=== PATIENT | male | born 1945 | race Asian ===

== ENCOUNTER 2019-06-02 15:20 | Emergency (ER) | payer OTHER ==
[~2019-06-02] VITALS: Ht 182.9 cm; Wt 72.6 kg
[2019-06-02 15:36] VITALS: BP 140/77
[2019-06-02] MEDS ORDERED: INVOKANA100 MG PO (15:37)
[2019-06-02] MEDS ORDERED: METFORMIN HCL500 M1 ORAL (15:38)
[2019-06-02] MEDS ORDERED: SULFAMETHOXAZO480 ML ORAL (15:43)
--- NOTE | 2019-06-02 15:50 | NUR ---
ED Nurse Note: Pt ambulated to the ED with son; with the c/o of painful urination with dark red blood in urine started this morning at 0500. Pt stated his prostate was removed last year. Urine specimen collected sent to lab.
--- NOTE | 2019-06-02 15:58 | NUR ---
ED Nurse Note: Son at bedside.
[2019-06-02 16:21] LABS: APPEARANCE,URINE TURBID; BILIRUBIN, URINE NEGATIVE (NEGATIVE); GLUCOSE, URINE (UA) 4+ (NEGATIVE); KETONES,URINE NEGATIVE (NEGATIVE); LEUKOCYTE ESTERASE ,URINE NEGATIVE (NEGATIVE); NITRITE,URINE NEGATIVE (NEGATIVE); PH,URINE 6.5 (4.5-8.0); PROTEIN,URINE 4+ (NEGATIVE); UROBILINOGEN,URINE NORMAL MG/DL (0.0-1.0)
--- NOTE | 2019-06-02 16:23 | NUR ---
ED Nurse Note: Obtained blood specimen, sent to labs. Established IV site at LT forearm with 20G, intact and patent.
[2019-06-02 16:25] LABS: COLOR,URINE RED
[2019-06-02 16:30] VITALS: BP 132/63
[2019-06-02 16:31] LABS: EOSINOPHILS % (AUTO) 1.5 % (0.0-3.0); HEMATOCRIT 41.1 % (42.0-52.0); HEMOGLOBIN 15.6 G/DL (14.2-18.0); LYMPHOCYTES % (AUTO) 35.9 % (20.0-45.0); MEAN CORPUSCULAR VOLUME 90 FL (80-99); MONOCYTES % (AUTO) 6.1 % (1.0-10.0); NEUTROPHILS % (AUTO) 54.6 % (45.0-75.0); PLATELET COUNT 198 K/UL (150-450); RED BLOOD COUNT 4.55 M/UL (4.70-6.10); RED CELL DISTRIBUTION WIDTH 10.3 % (11.6-14.8); WHITE BLOOD COUNT 6.4 K/UL (4.8-10.8)
[2019-06-02 16:43] LABS: ANION GAP 8 mmol/L (5-15); BLOOD UREA NITROGEN 19 mg/dL (7-18); CALCIUM 8.2 MG/DL (8.5-10.1); CARBON DIOXIDE 28 MMOL/L (21-32); CHLORIDE 105 MMOL/L (98-107); CREATININE 0.9 MG/DL (0.55-1.30); POTASSIUM 3.6 MMOL/L (3.5-5.1); SODIUM 141 MMOL/L (136-145)
[2019-06-02 16:53] LABS: ALANINE AMINOTRANSFERASE 24 U/L (12-78); ALBUMIN 3.5 G/DL (3.4-5.0); ALBUMIN/GLOBULIN RATIO 0.9 (1.0-2.7); ALKALINE PHOSPHATASE 62 U/L (46-116); ASPARTATE AMINO TRANSFERASE 10 U/L (15-37); BILIRUBIN,TOTAL 0.2 MG/DL (0.2-1.0)
--- NOTE | 2019-06-02 17:00 | NUR ---
ED Nurse Note: Ultrasound at bedside.
[2019-06-02] MEDS ORDERED: Omnipaque-300 100ml vial INJ PRN (17:30)
--- NOTE | 2019-06-02 17:41 | Emergency Room Report ---
History of Present Illness General Chief Complaint: Male Urogenital Problems Source: Patient Present Illness HPI 73 YO male presents to the ED c/o Hematuria x 1 day. He reports 5/10 in severity lower abdominal/bladder fullness. He reports he has difficulty emptying his bladder completely. Pt . reports hx. of prostate surgery in October of last year with hx of occasional scant hematuria, but denies previous episodes of gross hematuria. Pt. denies fevers, chills, constipation, anuria or inability to urinate. Pt. denies rectal pain, bleeding or d/c. Pt. denies nausea or vomiting. He denies dysuria or frequency. Denies CP, Palpitations, LOC, AMS, dizziness, Changes in Vision, Sensation, paresthesias, or a sudden severe headache. He was seen by his PCP this am and rx'd Bactrim DS to take for UTI. Pt. reports he began this medication however his hematuria is not improving. Pt. denies penile d/c, testicular pain or swelling. Pt. denies low back pain. He denies night sweats or hx of cancer. reports pmhx of DM and arrhythmia. No other aggravating or relieving factors at this time. Denies penile/ abdominal trauma. Denies recent Childress/catheter use/placement. Allergies: Coded Allergies: PENICILLINS (Verified Allergy, Unknown, 06/02/19) Patient History Past Medical History: see triage record, DM, arrhyth Past Surgical History: other - prostate surgery unknown procedure. october of 2017 Reviewed Nursing Documentation: PMH: Agreed; PSxH: Agreed Nursing Documentation-PMH Past Medical History: No History, Except For Hx Diabetes: Yes Review of Systems All Other Systems: negative except mentioned in HPI Physical Exam Vital Signs Date Time Temp Pulse Resp B/P (MAP) Pulse Ox O2 Delivery O2 Flow Rate FiO2 06/02/19 15:28 98.6 59 18 140/77 (98) 95 Room Air Sp02 EP Interpretation: reviewed, normal General Appearance: no apparent distress, alert, GCS 15, non-toxic Head: normocephalic, atraumatic Eyes: bilateral eye normal inspection, bilateral eye PERRL ENT: hearing grossly normal, normal voice Neck: full range of motion Respiratory: lungs clear, normal breath sounds, speaking full sentences Cardiovascular #1: regular rate, rhythm, no edema Gastrointestinal: normal bowel sounds, soft, non-distended, no guarding, tenderness - mild low suprapubic midline ttp. NO peritoneal signs. no rebound. no macburny's, no CVA Genitourinary: normal inspection, no CVA tenderness, other - gross hematuria Musculoskeletal: normal range of motion, gait/station normal, non-tender Neurologic: alert, motor strength/tone normal, oriented x3, sensory intact, responsive, speech normal Psychiatric: judgement/insight normal Skin: no rash, normal color Lymphatic: no adenopathy Medical Decision Making PA Attestation Dr. Banuelos Is my supervising Physician whom patient management has been discussed with. Diagnostic Impression: Primary Impression: Gross hematuria Additional Impressions: Bladder mass Hx of prostatitis ER Course 73 YO male presents to the ED c/o Hematuria x 1 day. He reports 5/10 in severity lower abdominal/bladder fullness. He reports he has difficulty emptying his bladder completely. Pt . reports hx. of prostate surgery in October of last year with hx of occasional scant hematuria, but denies previous episodes of gross hematuria. Pt. denies fevers, chills, constipation, anuria or inability to urinate. Pt. denies rectal pain, bleeding or d/c. Pt. denies nausea or vomiting. He denies dysuria or frequency. Denies CP, Palpitations, LOC, AMS, dizziness, Changes in Vision, Sensation, paresthesias, or a sudden severe headache. He was seen by his PCP this am and rx'd Bactrim DS to take for UTI. Pt. reports he began this medication however his hematuria is not improving. Pt. denies penile d/c, testicular pain or swelling. Pt. denies low back pain. He denies night sweats or hx of cancer. reports pmhx of DM and arrhythmia. No other aggravating or relieving factors at this time. Denies penile/ abdominal trauma. Denies recent Childress/catheter use/placement. Ddx considered but are not limited to UTi , Pyelo, STI, Stone, Cystitis, bladder outlet obstruction, malignancy/mass, prostatitis, infection just to name a few. Vital signs: are WNL, pt. is afebrile H&PE are most consistent with gross hematuria ORDERS: - UA labs are attached - gross hematuria, and few bacteria, no increased inflammatory markers to represent significant infection. -CBC: WNL no evidence to suggest significant acute blood loss. hgb 15.6 -CMP: WNL, normal renal function. elevated glucose at 205 -Lipase : WNL -ABO type: A positive (+) US Renal: bladder mass per US tech. -CT Abdomen and Pelvis W/WO contrast: " Hyperdense material seen within the urinary bladder likely representing blood products. An infectious process versus mass is not excluded but felt to be less likely. Marked enlargement of the prostate gland." Per official radiology report- Please see report for specific details. ED INTERVENTIONS: None required at this time. -Pt. reports able to urinate and does not want a Childress catheter. Pt. also reports that during ED visit he was able to get an appoint tomorrow ( within 24 hours) with his urologist. Discussed with patient and his son that he is to continue taking his antibiotics as prescribed by his primary care provider. Also discussed with the patient and his son the importance of urgent urology follow-up. Per patient and his son the patient already has an appointment for tomorrow with the urologist. Discussed with the patient and his son the abnormal finding of a urinary mass on CT exam and the need for prompt urology evaluation to rule out cancerous etiology, infectious and/or for definitive treatment. Pt. is provided with a copy of the official [facility] CT report as well as CD copy of his CT imaging performed at today's. visit. Pt. is also given a copy of his labs. The patient as well as his son who is responsible alliance party both verbalized their understanding and agreement with this treatment plan. DISCHARGE: At this time pt. is stable for d/c to home. Will provide printed patient care instructions, and any necessary prescriptions. Care plan and follow up instructions have been discussed with the patient prior to discharge. Labs Test 06/02/19 15:46 06/02/19 16:20 Urine Color Red Urine Appearance Turbid Urine pH 6.5 (4.5-8.0) Urine Specific [place] 1.015 (1.005-1.035) Urine Protein 4+ (NEGATIVE) Urine Glucose (UA) 4+ (NEGATIVE) Urine Ketones Negative (NEGATIVE) Urine Blood 5+ (NEGATIVE) Urine Nitrite Negative (NEGATIVE) Urine Bilirubin Negative (NEGATIVE) Urine Urobilinogen Normal MG/DL (0.0-1.0) Urine Leukocyte Esterase Negative (NEGATIVE) Urine RBC Tntc /HPF (0 - 0) Urine WBC 0-2 /HPF (0 - 0) Urine Squamous Epithelial Cells None /LPF (NONE/OCC) Urine Bacteria Few /HPF (NONE) White Blood Count 6.4 K/UL (4.8-10.8) Red Blood Count 4.55 M/UL (4.70-6.10) Hemoglobin 15.6 G/DL (14.2-18.0) Hematocrit 41.1 % (42.0-52.0) Mean Corpuscular Volume 90 FL (80-99) Mean Corpuscular Hemoglobin 34.2 PG (27.0-31.0) Mean Corpuscular Hemoglobin Concent 37.9 G/DL (32.0-36.0) Red Cell Distribution Width 10.3 % (11.6-14.8) Platelet Count 198 K/UL (150-450) Mean Platelet Volume 6.2 FL (6.5-10.1) Neutrophils (%) (Auto) 54.6 % (45.0-75.0) Lymphocytes (%) (Auto) 35.9 % (20.0-45.0) Monocytes (%) (Auto) 6.1 % (1.0-10.0) Eosinophils (%) (Auto) 1.5 % (0.0-3.0) Basophils (%) (Auto) 2.0 % (0.0-2.0) Sodium Level 141 MMOL/L (136-145) Potassium Level 3.6 MMOL/L (3.5-5.1) Chloride Level 105 MMOL/L (98-107) Carbon Dioxide Level 28 MMOL/L (21-32) Anion Gap 8 mmol/L (5-15) Blood Urea Nitrogen 19 mg/dL (7-18) Creatinine 0.9 MG/DL (0.55-1.30) Estimat Glomerular Filtration Rate mL/min (>60) Glucose Level 207 MG/DL (74-106) Calcium Level 8.2 MG/DL (8.5-10.1) Total Bilirubin 0.2 MG/DL (0.2-1.0) Aspartate Amino Transf (AST/SGOT) 10 U/L (15-37) Alanine Aminotransferase (ALT/SGPT) 24 U/L (12-78) Alkaline Phosphatase 62 U/L (46-116) Total Protein 7.4 G/DL (6.4-8.2) Albumin 3.5 G/DL (3.4-5.0) Globulin 3.9 g/dL Albumin/Globulin Ratio 0.9 (1.0-2.7) Lipase 158 U/L (73-393) CT/MRI/US Diagnostic Results CT/MRI/US Diagnostic Results #1: Imaging Test Ordered: Renal US Impression " large mass in the bladder per US tech verbal report" - CT with contrast is ordered based on this information. CT/MRI/US Diagnostic Results #2: Imaging Test Ordered: CT Abdomen and Pelvis W. and WO contrast Impression " Hyperdense material seen within the urinary bladder likely representing blood products. An infectious process versus mass is not excluded but felt to be less likely. Marked enlargement of the prostate gland." Per official radiology report- Please see report for specific details. Last Vital Signs Date Time Temp Pulse Resp B/P (MAP) Pulse Ox O2 Delivery O2 Flow Rate FiO2 06/02/19 16:30 98.4 56 22 132/63 97 Room Air Disposition: HOME, SELF-CARE Condition: Stable Referrals: NON PHYSICIAN (PCP) Patient Instructions: Hematuria, Adult Additional Instructions: Take medications as directed. Follow up with a UROLOGIST ( UROLOGY SPECIALIST) within 24-48 hours. Even if your symptoms have resolved. Return sooner to ED if new symptoms occur, or current symptoms become worse. - Please note that this Emergency Department Report was dictated using [employer] machine operator technology software, occasionally this can lead to erroneous entry secondary to interpretation by the dictation equipment. Lauren Chavez Jun 02, 2019 17:41
--- NOTE | 2019-06-02 17:49 | NUR ---
ED Nurse Note: Pt returned back from CT.
[2019-06-02 17:59] VITALS: BP 139/70
--- NOTE | 2019-06-02 18:13 | Diagnostic Imaging Report ---
Indication: Abdominal pain Technique: Continuous helical transaxial imaging of the abdomen and pelvis was obtained from the lung bases to the pubic symphysis during intravenous contrast administration. Coronal 2-D reformats were also obtained. Study obtained in a Siemens sensation [address] Automatic Exposure Control was utilized. Total Dose length Product (DLP): 988.[address] Dose Index Volume (CTDIvol): 16.7 mGy Comparison: None Findings: The lung bases are clear. The liver is hypodense. Gallstones noted. Gallbladder is contracted. Spleen is unremarkable. The pancreas and adrenal glands are unremarkable. Aorta is moderately calcified. Prostate is enlarged. There is a hypodense filling defect within the urinary bladder measuring approximately 6 x 4.8 cm on transverse images. This may be a hematoma and appeared organized and solid by recent ultrasound. Cystoscopy may be of benefit for further evaluation. IMPRESSION: Bladder hematoma. Underlying mass not excluded. Prostate hypertrophy Cholelithiasis. Para graft fatty liver [facility] has communicated the preliminary results to the Emergency Department. Their findings are largely concordant with this report. The CT scanner at [facility] is accredited by the [employer] and the scans are performed using dose optimization techniques as appropriate to a performed exam including Automatic Exposure control.
--- NOTE | 2019-06-02 19:00 | NUR ---
ED Nurse Note: pt dc per ermd-pac. pt is ambulatory with steady gait and assisted by son. pt iv site discontinued, pt id band removed. pt was given dc isntructions and verbalized understanding. pt took all belongings.
[2019-06-02 19:01] VITALS: BP 123/90
--- NOTE | 2019-06-03 10:05 | Diagnostic Imaging Report ---
Indication:Elevated Bun and Creatinine. Technique: Grayscale and duplex Doppler imaging of the kidneys performed. Comparison: None Findings: The size, contour, and echogenicity of both kidneys are within normal limits. There is no hydronephrosis.. The right kidney measures 11.9 cm. in length. The left kidney measures 11.9 cm. in length. The IVC is patent. There is a heterogeneous mass within the urinary bladder which may be a solid tumor or hematoma. Evaluation with cystoscopy. Prostate is enlarged. IMPRESSION: 6 cm mass versus a organized hematoma within the bladder. Consider cystoscopy for further evaluation. No hydronephrosis. Prostate hypertrophy
== END 2019-06-02 19:00 | disposition home or self-care (01) ==
LOC: EMR 15:55
DX: R31.9 Hematuria, unspecified (principal); N32.9 Bladder disorder, unspecified; Z88.0 Allergy status to penicillin; E11.9 Type 2 diabetes mellitus without complications
CPT/HCPCS: 36415; 74177; 76770; 80053; 81003; 83690; 85025; 86850; 86900; 86901; 99284; Q9967